=== PATIENT | female | born 1970 | race Caucasian/White ===

== ENCOUNTER 2016-07-11 13:25 | Emergency (ER) | payer BC ==
[2016-07-11 14:56] VITALS: BP 117/60
--- NOTE | 2016-07-11 15:34 | UC ---
Throat Pain/Nasal John HPI - HPI Summary HPI Summary: COUGH AND FEVER SINCE 06/21/16. COUGH AND SINUS CONGESTION HAVE REMAINED AND WORSENING OVER LAST TWO DAYS. - History of Current Complaint Chief Complaint: UCRespiratory Stated Complaint: COUGH,THROAT Time Seen by Provider: 07/11/16 15:19 Hx Obtained From: Patient, Family/Enroller Hx Last Menstrual Period: 06/21/16 ?: Yes Onset/Duration: Gradual Onset, Lasting Weeks, Still Present Severity: Moderate Cough: Nonproductive Associated Signs & Symptoms: Positive: Sinus Discomfort, Nasal Discharge, Fever - Epiglottits Risk Factors Epiglottis Risk Factors: Negative - Allergies/Home Medications Allergies/Adverse Reactions: Allergies Allergy/AdvReac Type Severity Reaction Status Date / Time Codeine Allergy respiratory Verified 07/11/16 14:50 distress Home Medications: Home Medications Diphenhydramine-Acetaminophen [Tylenol Pm Extra Strength 500-25 mg] 2 tab PO BEDTIME PRN 07/11/16 [History Confirmed 07/11/16] Pseudoephedrine TAB* [Sudafed TAB*] 60 mg PO Q6H PRN 07/11/16 [History Confirmed 07/11/16] PMH/Surg Hx/FS Hx/Imm Hx Previously Healthy: Yes - Surgical History Surgical History: Yes Surgery Procedure, Year, and Place: tonsils - Family History Known Family History: Negative: Respiratory Disease - Social History Occupation: Employed Full-time Lives: With Family Alcohol Use: Occasionally Substance Use Type: None Smoking Status (MU): Never Smoked Tobacco - Immunization History Most Recent Influenza Vaccination: not this season Review of Systems Constitutional: Fever Skin: Negative Eyes: Negative ENT: Nasal Discharge Respiratory: Cough Cardiovascular: Negative Gastrointestinal: Negative Genitourinary: Negative Motor: Negative Neurovascular: Negative Musculoskeletal: Negative Neurological: Negative Psychological: Negative All Other Systems Reviewed And Are Negative: Yes Physical Exam Triage Information Reviewed: Yes Appearance: No Pain Distress, Well-Nourished, Ill-Appearing - MILDLY Vital Signs: Initial Vital Signs Temp 100.5 F 07/11/16 14:52 Pulse 85 07/11/16 14:52 Resp 18 07/11/16 14:52 BP 117/60 07/11/16 14:52 Pulse Ox 100 07/11/16 14:52 Vital Signs Reviewed: Yes Eye Exam: Normal ENT Exam: Normal ENT: Positive: Normal ENT inspection, Hearing grossly normal, Pharynx normal, TMs normal Dental Exam: Normal Neck exam: Normal Neck: Positive: Supple, Nontender Respiratory Exam: Normal Respiratory: Positive: Chest non-tender, Lungs clear, Normal breath sounds, No respiratory distress, No accessory muscle use Cardiovascular Exam: Normal Cardiovascular: Positive: RRR, No Murmur, Pulses Normal, Brisk Capillary Refill Abdominal Exam: Normal Abdomen Description: Positive: Nontender, No Organomegaly Musculoskeletal Exam: Normal Musculoskeletal: Positive: Strength Intact, ROM Intact Neurological Exam: Normal Psychological Exam: Normal Psychological: Positive: Normal Response To Family Skin Exam: Normal Throat Pain/Nasal Course/Dx - Differential Dx/Diagnosis Differential Diagnosis/HQI/PQRI: Pharyngitis, Sinusitis, URI Provider Diagnoses: SINUSITIS Discharge - Discharge Plan Condition: Stable Disposition: HOME Prescriptions: Amoxicillin/Clavulanate TAB* [Augmentin TAB 875*] 875 mg PO BID #20 tab Benzonatate CAP* [Tessalon CAP*] 100 mg PO TID PRN #15 cap PRN Reason: Cough Patient Education Materials: Sinusitis (ED) Referrals: Amilcar Trinh DO [Primary Care Provider] -
== END 2016-07-11 16:02 | disposition home or self-care (01) ==
LOC: UCCORT 13:25
DX: J32.9 Chronic sinusitis, unspecified (principal); Z88.5 Allergy status to narcotic agent
CPT/HCPCS: 99212; G0463

== ENCOUNTER 2017-11-11 07:24 | Emergency (ER) | payer BC ==
--- NOTE | 2017-11-11 07:33 | UC ---
Dizzy HPI HPI Summary: 46 year old female with left shoulder pain and also feels dizzy. She has been working out more than usual and may have injured shoulder and the pain from shoulder causing some nausea and dizzy sensation. does not feel shortness of breath, palpitations or chest pain . RIGHT SHOULDER PAIN SINCE BACK AND CHEST WORKOUT LAST NIGHT, DIZZINESS AND NAUSEA CAUSED BY PAIN. HAS A CHRONIC INJURY TO RIGHT SHOULDER. Pain 8/10 at times. Lost ROM in the shoulder. Was doing over head exercises at gym and when got home the pain started./ has had numbness and tingling as well in the right wrist and hand. Has has right shoulder pain on and off for about 4 weeks she states. - History Of Current Complaint Stated Complaint: RT SHOULDER PAIN/NAUSEA/DIZZY Time Seen by Provider: 11/11/17 07:32 Hx Obtained From: Patient Hx Last Menstrual Period: 06/21/16 Onset/Duration: Sudden Onset Timing: Constant Severity Initially: Mild Severity Currently: Moderate Character: Lightheaded, Dizzy Aggravating Factor(s): Exertion Alleviating Factor(s): Rest - Allergies/Home Medications Allergies/Adverse Reactions: Allergies Allergy/AdvReac Type Severity Reaction Status Date / Time codeine Allergy Difficulty Verified 11/11/17 07:43 Breathing Home Medications: Home Medications Cetirizine* [ZyrTEC 10 MG TAB*] 10 mg PO DAILY 11/11/17 [History Confirmed 11/11] Fluticasone NASAL SPRAY 50MCG* [Flonase NASAL SPRAY 50MCG*] 1 spray INH DAILY [History Confirmed 11/11/17] Ibuprofen 600 mg PO Q8H 11/11/17 [History Confirmed 11/11/17] PMH/Surg Hx/FS Hx/Imm Hx Previously Healthy: Yes - Surgical History Surgical History: Yes Surgery Procedure, Year, and Place: tonsils - Family History Known Family History: Negative: Respiratory Disease - Social History Occupation: Employed Full-time Alcohol Use: Occasionally Substance Use Type: None Smoking Status (MU): Never Smoked Tobacco - Immunization History Most Recent Influenza Vaccination: not this season Review of Systems Musculoskeletal: Arthralgia, Decreased ROM Neurological: Other - dizziness intermittently Is Patient Immunocompromised?: No All Other Systems Reviewed And Are Negative: Yes Physical Exam Triage Information Reviewed: Yes Appearance: Well-Appearing, Well-Nourished, Pain Distress - mild Vital Signs Reviewed: Yes Eye Exam: Normal ENT Exam: Normal Respiratory Exam: Normal Cardiovascular Exam: Normal Musculoskeletal: Positive: ROM Limited @ - pain with forward flexion right shoulder with anterior shoulder pain to palpation. no clavicle bony abnormality. no lateral shoulder pain,. (+) scapulothoracic right sided pain to palpationl. (+) Neers, (+) cross arm. (-) lift off. strength in hands 5/5 and sensation intact, Other: - C spine normal to exam. no step off . no sp tenderness FROM C spine. Elbow exam WNL. peripheral pulses intact. cap refill < 3 sec Neurological Exam: Normal Diagnostics - Laboratory Diagnostic Studies Completed/Ordered: xray --- read by rds -- calcific tendonitis Dizzy Course/Dx - Course Course Of Treatment: Over use injury. Xray neg. Start NSAIDs, PT, medrol for radiculopathy, refer to Ortho. go to ED if Sx worsen. toradol reduced pain to 5 /10 -- she requests delilah at this time . refer - Differential Dx/Diagnosis Provider Diagnoses: Right shoulder pain / tendonitis Discharge - Sign-Out/Discharge Documenting (check all that apply): Discharge/Admit/Transfer - Discharge Plan Condition: Good Disposition: HOME Patient Education Materials: Calcific Tendinitis (ED) Referrals: Amilcar Trinh DO [Primary Care Provider] - 1 Week Nilsa PARKINSON,Julian Walker [Medical Doctor] - (Orthopedic referral ) - Billing Disposition and Condition Condition: GOOD Disposition: HOME
[2017-11-11 07:47] VITALS: BP 98/64
[2017-11-11] MEDS ORDERED: Ketorolac INJ* 30 MG/ML 1 ML VIAL IM ONE (08:16)
--- NOTE | 2017-11-11 08:59 | RAD ---
Indication: RIGHT shoulder pain. Comparison: No relevant prior exams available on the [facility] PACS for comparison. Technique: Internal rotation AP, external rotation Grashey, scapular Y, axillary views RIGHT shoulder Report: Negative for fracture. Normal acromioclavicular and glenohumeral joint alignment. Calcific tendinopathy at the level of the infraspinatus tendon most conspicuous on the internal rotation view. Unremarkable soft tissue contours. IMPRESSION: Calcific tendinopathy of the infraspinatus tendon.
== END 2017-11-11 09:34 | disposition home or self-care (01) ==
LOC: UCCORT 07:24
DX: Z88.5 Allergy status to narcotic agent (principal); M75.91 Shoulder lesion, unspecified, right shoulder
CPT/HCPCS: 99211; G0463; J1885

== ENCOUNTER 2018-01-31 08:02 | Emergency (ER) | payer BC ==
[2018-01-31 08:18] VITALS: BP 112/62
--- NOTE | 2018-01-31 08:25 | UC ---
Throat Pain/Nasal John HPI - HPI Summary HPI Summary: sinus pain and pressure x 2 weeks nasal congestion , pnd, cough low grade fever, chills, , no sore throat, hx of recurrent sinusitis - History of Current Complaint Chief Complaint: UCRespiratory Stated Complaint: SINUSES Time Seen by Provider: 01/31/18 08:08 Hx Obtained From: Patient Hx Last Menstrual Period: 01/29/18 ?: No Onset/Duration: Gradual Onset, Lasting Weeks - 2, Still Present Severity: Moderate Pain Intensity: 4 Cough: Nonproductive Associated Signs & Symptoms: Positive: Sinus Discomfort, Nasal Discharge, Fever. Negative: Wheezing, Hoarseness, Vomiting, Rash - Allergies/Home Medications Allergies/Adverse Reactions: Allergies Allergy/AdvReac Type Severity Reaction Status Date / Time codeine Allergy Difficulty Verified 01/31/18 08:12 Breathing PMH/Surg Hx/FS Hx/Imm Hx - Additional Past Medical History Additional PMH: hx of meningitis x 2 Neurological History: Migraine - Surgical History Surgical History: Yes Surgery Procedure, Year, and Place: tonsils - Family History Known Family History: Negative: Respiratory Disease - Social History Alcohol Use: Occasionally Substance Use Type: None Smoking Status (MU): Never Smoked Tobacco - Immunization History Most Recent Influenza Vaccination: not this season Review of Systems Constitutional: Fever, Chills, Fatigue Skin: Negative Eyes: Negative ENT: Sore Throat, Nasal Discharge, Sinus Congestion, Sinus Pain/Tenderness Respiratory: Cough Cardiovascular: Negative Is Patient Immunocompromised?: No All Other Systems Reviewed And Are Negative: Yes Physical Exam Triage Information Reviewed: Yes Appearance: Well-Appearing, No Pain Distress, Well-Nourished Vital Signs: Initial Vital Signs Temp 98.5 F 01/31/18 08:11 Pulse 63 01/31/18 08:11 Resp 15 01/31/18 08:11 BP 112/62 01/31/18 08:11 Pulse Ox 100 01/31/18 08:11 Vital Signs Reviewed: Yes Eye Exam: Normal Eyes: Positive: Conjunctiva Clear ENT: Positive: Normal ENT inspection, Hearing grossly normal, Pharyngeal erythema, Nasal congestion, Nasal drainage, TMs normal, Sinus tenderness. Negative: Tonsillar swelling, Tonsillar exudate Neck exam: Normal Neck: Positive: Supple, Nontender, No Lymphadenopathy Respiratory: Positive: Chest non-tender, Lungs clear, Normal breath sounds Cardiovascular: Positive: RRR, No Murmur, Pulses Normal Skin Exam: Normal Throat Pain/Nasal Course/Dx - Differential Dx/Diagnosis Provider Diagnoses: Sinusitis Discharge - Sign-Out/Discharge Documenting (check all that apply): Patient Departure All imaging exams completed and their final reports reviewed: No Studies - Discharge Plan Condition: Stable Disposition: HOME Prescriptions: Amoxicillin/Clavulanate TAB* [Augmentin TAB 875*] 875 mg PO BID #20 tab Patient Education Materials: Sinusitis (ED) Referrals: Bruce Argueta MD [Primary Care Provider] - If Needed - Billing Disposition and Condition Condition: STABLE Disposition: Home
== END 2018-01-31 08:27 | disposition home or self-care (01) ==
LOC: UCCORT 08:02
DX: J32.9 Chronic sinusitis, unspecified (principal); Z88.5 Allergy status to narcotic agent
CPT/HCPCS: 99212; G0463

== ENCOUNTER 2018-08-30 07:05 | Emergency (ER) | payer BC ==
[2018-08-30 07:16] VITALS: BP 121/74
--- NOTE | 2018-08-30 07:43 | UC ---
Respiratory Complaint HPI - HPI Summary HPI Summary: 3 WEEKS OF COUGH, CONGESTION, CHILLS AND FATIGUE. HAS SINUS PRESSURE/PAIN AND HEADACHE. HAS HAD INTERMITTENT SUBJECTIVE FEVER THROUGHOUT THE ILLNESS. WOKE UP THIS MORNING WITH 101 TEMP. - History of Current Complaint Chief Complaint: UCGeneralIllness Stated Complaint: SINUS FEVER FATIGUE SORE THROAT COUGH Time Seen by Provider: 08/30/18 07:28 Hx Obtained From: Patient Hx Last Menstrual Period: 08/06/18 Onset/Duration: Gradual Onset, Lasting Weeks, Still Present Timing: Constant Severity Initially: Moderate Severity Currently: Moderate Pain Intensity: 6 Pain Scale Used: 0-10 Numeric Character: Cough: Nonproductive Aggravating Factors: Nothing Alleviating Factors: Nothing Associated Signs And Symptoms: Positive: Fever, Chills, URI, Nasal Congestion, Sinus Discomfort. Negative: Dyspnea - Allergies/Home Medications Allergies/Adverse Reactions: Allergies Allergy/AdvReac Type Severity Reaction Status Date / Time codeine Allergy Difficulty Verified 08/30/18 07:13 Breathing Home Medications: Home Medications Amitriptyline TAB* [Elavil TAB*] 10 mg PO BEDTIME 08/30/18 [History Confirmed ] Dm/PE/Acetaminophen/Chlorphenr [Cold Multi-Symptom Day-Night] 1 joel PO ONCE [History Confirmed 08/30/18] PMH/Surg Hx/FS Hx/Imm Hx Neurological History: Migraine - Surgical History Surgical History: Yes Surgery Procedure, Year, and Place: tonsils - Family History Known Family History: Positive: Non-Contributory Negative: Respiratory Disease - Social History Alcohol Use: Rare Substance Use Type: None Smoking Status (MU): Never Smoked Tobacco - Immunization History Most Recent Influenza Vaccination: not this season Review of Systems All Other Systems Reviewed And Are Negative: Yes Constitutional: Positive: Fever, Chills, Fatigue ENT: Positive: Sore Throat, Nasal Discharge, Sinus Congestion, Sinus Pain/ Tenderness Respiratory: Positive: Cough Cardiovascular: Positive: Negative Gastrointestinal: Positive: Negative Neurological: Positive: Headache Physical Exam Triage Information Reviewed: Yes Appearance: Well-Appearing, No Pain Distress, Well-Nourished Vital Signs: Initial Vital Signs Temp 98 F 08/30/18 07:13 Pulse 89 08/30/18 07:13 Resp 18 08/30/18 07:13 BP 121/74 08/30/18 07:13 Pulse Ox 99 08/30/18 07:13 Vital Signs Reviewed: Yes Eyes: Positive: Conjunctiva Clear ENT: Positive: Hearing grossly normal, Pharynx normal, TMs normal Neck: Positive: Supple, Nontender, No Lymphadenopathy Respiratory Exam: Normal Cardiovascular Exam: Normal Abdomen Description: Positive: Soft Musculoskeletal: Positive: No Edema Neurological: Positive: Alert Psychological: Positive: Age Appropriate Behavior Skin: Negative: Rashes Respiratory Course/Dx - Differential Dx/Diagnosis Provider Diagnosis: Acute rhinosinusitis Discharge - Sign-Out/Discharge Documenting (check all that apply): Patient Departure All imaging exams completed and their final reports reviewed: No Studies - Discharge Plan Condition: Stable Disposition: HOME Prescriptions: Amoxicillin/Clavulanate TAB* [Augmentin TAB 875*] 875 mg PO BID #20 tab Patient Education Materials: Rhinosinusitis (ED) Referrals: Vinay Lyons MD [Primary Care Provider] - If Needed Additional Instructions: YOUR SYMPTOMS MAY BE VIRALLY MEDIATED BUT GIVEN THE LENGTH OF TIME YOU HAVE BEEN ILL WE WILL COVER YOU WITH ANTIBIOTICS. IF YOU START THE MEDICINE BE SURE TO TAKE IT FOR THE FULL COURSE. REST, HYDRATE, OTC MEDS NEEDED. SEEK FOLLOW- UP WITH YOUR PCP IF YOU ARE NOT IMPROVING OVER THE NEXT 1-2 WEEKS. USE OTC AFRIN FOR NASAL CONGESTION. 2 SPRAYS IN EACH NOSTRIL TWICE DAILY NEEDED. DO NOT USE FOR MORE THAN 3-4 DAYS IN A ROW TO PREVENT DEVELOPING REBOUND CONGESTION. - Billing Disposition and Condition Condition: STABLE Disposition: Home
== END 2018-08-30 07:48 | disposition home or self-care (01) ==
LOC: UCCORT 07:05
DX: J01.90 Acute sinusitis, unspecified (principal); G43.909 Migraine, unspecified, not intractable, without status migrainosus; Z79.899 Other long term (current) drug therapy
CPT/HCPCS: 99212; G0463